=== PATIENT | male | born 1945 | race Caucasian/White ===

== ENCOUNTER → 2018-01-04 12:11 | Outpatient (CLI) | payer OTHER, SELFPAY ==
[2018-01-04 13:44] LABS: BUN Creatinine Ratio 19.2 (6-22); Calcium 9.2 mg/dL (8.4-10.2); Estimated Glomerular Filt Rate 59.5 mL/min (>60); Glucose 135 mg/dL (80-110); HEMOLYSIS < 15 (0-50); Phosphorous 3.6 mg/dL (2.3-3.7); Potassium 4.1 mmol/L (3.4-5.1); Sodium 142 mmol/L (137-145)
[2018-01-04 14:59] LABS: Creatinine Urine Random 234.8 mg/dL
[2018-01-04 15:56] LABS: Protein (Total) Urine Random 1331 mg/dL (0-12); Protein Creatinine Ratio Urine 5.66 GRAM/24H
[2018-01-08 13:30] LABS: Parathyroid Hormone Int 56 pg/mL (14-64)
== END ==
PROVIDERS: PCP Internal Medicine; Visit Provider Student in an Organized Health Care Education/Training Program
DX: N05.9 Unspecified nephritic syndrome with unspecified morphologic changes (principal); E83.30 Disorder of phosphorus metabolism, unspecified; N25.81 Secondary hyperparathyroidism of renal origin; R80.9 Proteinuria, unspecified
CPT/HCPCS: 36415; 80048; 82570; 83970; 84100; 84156

== ENCOUNTER → 2018-02-28 13:10 | Outpatient (CLI) | payer OTHER, SELFPAY ==
[2018-02-28 14:05] LABS: Hematocrit 34.3 % (41-53); Hemoglobin 11.9 g/dL (13.5-17.5); Mean Corpuscular HGB Conc 34.6 % (30-36); Mean Corpuscular Hemoglobin 32.2 PG (26-34); Mean Corpuscular Volume 93.2 fL (80-100); Platelet Count 504 X10^3/uL (150-400); Red Blood Cell Count 3.68 X10^6/uL (4.5-5.9); Red Cell Distribution Width 14.5 % (11.6-14.8); White Blood Cell Count 6.7 X10^3/uL (4.5-11.0)
[2018-02-28 14:49] LABS: BUN Creatinine Ratio 22.7 (6-22); Blood Urea Nitrogen 25 mg/dL (9-20); Calcium 8.8 mg/dL (8.4-10.2); Carbon Dioxide 33 mmol/L (22-32); Chloride 98 mmol/L (98-107); Estimated Glomerular Filt Rate > 60.0 mL/min (>60); Glucose 109 mg/dL (80-110); HEMOLYSIS < 15 (0-50); Potassium 3.7 mmol/L (3.4-5.1); Sodium 138 mmol/L (137-145)
[2018-02-28 16:11] LABS: Creatinine Urine Random 91.4 mg/dL
[2018-02-28 16:24] LABS: Protein (Total) Urine Random 415 mg/dL (0-12); Protein Creatinine Ratio Urine 4.54 GRAM/24H
== END ==
PROVIDERS: PCP Internal Medicine; Visit Provider Student in an Organized Health Care Education/Training Program
DX: R80.9 Proteinuria, unspecified (principal); D70.9 Neutropenia, unspecified; N05.9 Unspecified nephritic syndrome with unspecified morphologic changes
CPT/HCPCS: 36415; 80048; 82570; 84156; 85027

== ENCOUNTER → 2018-04-11 14:11 | Outpatient (CLI) | payer OTHER, SELFPAY ==
[2018-04-11 14:45] LABS: Hematocrit 42.3 % (41-53); Hemoglobin 14.8 g/dL (13.5-17.5); Mean Corpuscular HGB Conc 34.9 % (30-36); Mean Corpuscular Hemoglobin 32.6 PG (26-34); Mean Corpuscular Volume 93.6 fL (80-100); Platelet Count 294 X10^3/uL (150-400); Red Blood Cell Count 4.52 X10^6/uL (4.5-5.9); Red Cell Distribution Width 16.1 % (11.6-14.8); White Blood Cell Count 7.3 X10^3/uL (4.5-11.0)
[2018-04-11 15:00] LABS: BUN Creatinine Ratio 23.3 (6-22); Blood Urea Nitrogen 28 mg/dL (9-20); Calcium 9.6 mg/dL (8.4-10.2); Carbon Dioxide 27 mmol/L (22-32); Chloride 101 mmol/L (98-107); Estimated Glomerular Filt Rate 59.3 mL/min (>60); Glucose 81 mg/dL (80-110); HEMOLYSIS < 15 (0-50); Potassium 3.6 mmol/L (3.4-5.1); Sodium 140 mmol/L (137-145)
[2018-04-11 15:21] LABS: Creatinine Urine Random 44.6 mg/dL; Protein (Total) Urine Random 109 mg/dL (0-12); Protein Creatinine Ratio Urine 2.44 GRAM/24H
== END ==
PROVIDERS: Family Provider Internal Medicine; PCP Internal Medicine; Visit Provider Student in an Organized Health Care Education/Training Program
DX: N05.9 Unspecified nephritic syndrome with unspecified morphologic changes (principal); D70.9 Neutropenia, unspecified; D63.1 Anemia in chronic kidney disease; R80.9 Proteinuria, unspecified
CPT/HCPCS: 36415; 80048; 82570; 84156; 85027

== ENCOUNTER → 2018-04-30 12:14 | Outpatient (CLI) | payer OTHER, SELFPAY ==
[2018-04-30 12:44] LABS: Hematocrit 42.8 % (41-53); Hemoglobin 15.2 g/dL (13.5-17.5); Mean Corpuscular HGB Conc 35.5 % (30-36); Mean Corpuscular Hemoglobin 33.4 PG (26-34); Mean Corpuscular Volume 94.1 fL (80-100); Platelet Count 298 X10^3/uL (150-400); Red Blood Cell Count 4.55 X10^6/uL (4.5-5.9); Red Cell Distribution Width 15.9 % (11.6-14.8); White Blood Cell Count 9.4 X10^3/uL (4.5-11.0)
[2018-04-30 12:56] LABS: Blood Urea Nitrogen 23 mg/dL (9-20); Carbon Dioxide 28 mmol/L (22-32); Chloride 107 mmol/L (98-107); Estimated Glomerular Filt Rate > 60.0 mL/min (>60); Glucose 94 mg/dL (80-110); HEMOLYSIS < 15 (0-50); Potassium 3.9 mmol/L (3.4-5.1); Sodium 142 mmol/L (137-145)
[2018-04-30 17:23] LABS: Protein (Total) Urine Random 130 mg/dL (0-12); Protein Creatinine Ratio Urine 0.96 GRAM/24H
== END ==
PROVIDERS: PCP Internal Medicine; Visit Provider Student in an Organized Health Care Education/Training Program
DX: N05.9 Unspecified nephritic syndrome with unspecified morphologic changes (principal); D70.9 Neutropenia, unspecified; R80.9 Proteinuria, unspecified
CPT/HCPCS: 36415; 80048; 82570; 84156; 85027

== ENCOUNTER → 2018-05-08 15:09 | Outpatient (CLI) | payer OTHER, SELFPAY ==
[2018-05-11 09:16] LABS: Tacrolimus 14.9 mcg/L (5.0-20.0)
== END ==
PROVIDERS: PCP Internal Medicine; Visit Provider Student in an Organized Health Care Education/Training Program
DX: T86.10 Unspecified complication of kidney transplant (principal)
CPT/HCPCS: 36415; 80197

== ENCOUNTER → 2018-05-15 09:31 | Outpatient (CLI) | payer OTHER, SELFPAY ==
[2018-05-17 15:41] LABS: Tacrolimus 14.7 mcg/L (5.0-20.0)
== END ==
PROVIDERS: Family Provider Internal Medicine; PCP Internal Medicine; Visit Provider Student in an Organized Health Care Education/Training Program
DX: T86.10 Unspecified complication of kidney transplant (principal)
CPT/HCPCS: 36415; 80197

== ENCOUNTER → 2018-05-27 08:32 | Outpatient (CLI) | payer OTHER, SELFPAY ==
[2018-05-27 09:05] LABS: Hematocrit 42.9 % (41-53); Hemoglobin 15.3 g/dL (13.5-17.5); Mean Corpuscular HGB Conc 35.6 % (30-36); Mean Corpuscular Hemoglobin 33.4 PG (26-34); Mean Corpuscular Volume 93.9 fL (80-100); Platelet Count 245 X10^3/uL (150-400); Red Blood Cell Count 4.57 X10^6/uL (4.5-5.9); Red Cell Distribution Width 14.5 % (11.6-14.8); White Blood Cell Count 5.3 X10^3/uL (4.5-11.0)
[2018-05-27 09:31] LABS: Creatinine Urine Random 94.7 mg/dL; Protein (Total) Urine Random 190 mg/dL (0-12)
[2018-05-27 09:32] LABS: BUN Creatinine Ratio 22.7 (6-22); Blood Urea Nitrogen 25 mg/dL (9-20); Calcium 9.3 mg/dL (8.4-10.2); Carbon Dioxide 33 mmol/L (22-32); Chloride 102 mmol/L (98-107); Estimated Glomerular Filt Rate > 60.0 mL/min (>60); Glucose 108 mg/dL (80-110); HEMOLYSIS < 15 (0-50); Potassium 3.4 mmol/L (3.4-5.1); Sodium 142 mmol/L (137-145)
== END ==
PROVIDERS: Family Provider Internal Medicine; PCP Internal Medicine; Visit Provider Student in an Organized Health Care Education/Training Program
DX: N05.9 Unspecified nephritic syndrome with unspecified morphologic changes (principal); D63.1 Anemia in chronic kidney disease; T86.10 Unspecified complication of kidney transplant; R80.9 Proteinuria, unspecified; D70.9 Neutropenia, unspecified
CPT/HCPCS: 36415; 80048; 80197; 82570; 84156; 85027

== ENCOUNTER → 2018-05-31 07:18 | Outpatient (CLI) | payer OTHER, SELFPAY ==
--- NOTE | 2018-05-31 | DI.MRI.S_ITS ---
PROCEDURE: MR HEAD/BRAIN WO/W CON INDICATIONS: SECONDARY PARKINSONISM. ABNORMAL GAIT. BILATERAL HAND TREMORS TECHNIQUE: Noncontrast axial T1 spin echo, axial T2 fast spin echo, sagittal and axial FLAIR, coronal T2 fast spin echo, axial gradient echo, axial diffusion and ADC through the brain. After the administration of contrast, axial and coronal T1 spin echo with fat saturation through the brain. COMPARISON: None. FINDINGS: Image quality: Diagnostic, with note made of motion artifact. CSF spaces: Basal cisterns are patent. No extra-axial fluid collections. Ventricles are normal in size and shape. Brain: No midline shift. No intracranial bleeds or masses. No abnormal intracranial enhancement. There is cerebral volume loss for age. There is periventricular white matter chronic small vessel ischemic change. The brainstem appears normal. Diffusion-weighted images demonstrate no acute ischemic insults. No chronic ischemic insults. Normal intravascular flow voids are present. Skull and face: Calvarial marrow is normal in signal. Orbits appear normal. Sinuses: Sinuses and mastoids appear clear. IMPRESSION: Normal brain MRI for age. No masses or abnormal enhancement can be seen. Note is made of age-appropriate brain parenchymal volume loss and chronic small vessel ischemic changes. No findings of acute or subacute infarction can be seen. Dictated by: Ricki Chaudhari M.D. on 05/31/2018 at 8:22 Approved by: Ricki Chaudhari M.D. on 05/31/2018 at 8:23
== END ==
PROVIDERS: PCP Internal Medicine; Visit Provider Psychiatry & Neurology Neurology
DX: G21.9 Secondary parkinsonism, unspecified (principal); R26.9 Unspecified abnormalities of gait and mobility
CPT/HCPCS: 70553

== ENCOUNTER → 2018-07-22 08:36 | Outpatient (CLI) | payer OTHER, SELFPAY ==
[2018-07-22 09:11] LABS: Hematocrit 40.4 % (41-53); Hemoglobin 14.1 g/dL (13.5-17.5); Mean Corpuscular HGB Conc 35.1 % (30-36); Mean Corpuscular Hemoglobin 34.6 PG (26-34); Mean Corpuscular Volume 98.7 fL (80-100); Platelet Count 263 X10^3/uL (150-400); Red Blood Cell Count 4.09 X10^6/uL (4.5-5.9); Red Cell Distribution Width 14.4 % (11.6-14.8); White Blood Cell Count 4.2 X10^3/uL (4.5-11.0)
[2018-07-22 09:56] LABS: BUN Creatinine Ratio 21.8 (6-22); Blood Urea Nitrogen 24 mg/dL (9-20); Calcium 9.5 mg/dL (8.4-10.2); Carbon Dioxide 28 mmol/L (22-32); Chloride 104 mmol/L (98-107); Creatinine Urine Random 51.8 mg/dL; Estimated Glomerular Filt Rate > 60.0 mL/min (>60); Glucose 100 mg/dL (80-110); HEMOLYSIS < 15 (0-50); Potassium 4.1 mmol/L (3.4-5.1); Protein (Total) Urine Random 125 mg/dL (0-12); Protein Creatinine Ratio Urine 2.41 GRAM/24H; Sodium 143 mmol/L (137-145)
[2018-07-24 17:19] LABS: Tacrolimus 7.4 mcg/L (5.0-20.0)
[2018-07-25 13:51] LABS: Parathyroid Hormone Int 52 pg/mL (14-64)
== END ==
PROVIDERS: PCP Internal Medicine; Visit Provider Student in an Organized Health Care Education/Training Program
DX: N05.9 Unspecified nephritic syndrome with unspecified morphologic changes (principal); D70.9 Neutropenia, unspecified; D63.1 Anemia in chronic kidney disease; T86.10 Unspecified complication of kidney transplant; N25.81 Secondary hyperparathyroidism of renal origin; R80.9 Proteinuria, unspecified
CPT/HCPCS: 36415; 80048; 80197; 82570; 83970; 84156; 85027

== ENCOUNTER → 2018-08-15 15:59 | Outpatient (CLI) | payer OTHER, SELFPAY ==
--- NOTE | 2018-08-15 16:04 | DI.RAD.S_ITS ---
PROCEDURE: XR ANKLE LT MIN 3V INDICATIONS: Ankle pain TECHNIQUE: 3 views of the ankle were acquired. COMPARISON: None. FINDINGS: Bones: No fractures or dislocations. Ankle mortise is normally aligned. No suspicious bony lesions. Soft tissues: Small to moderate tibiotalar joint effusion is likely present. Achilles tendon appears normal. Soft tissue swelling over lateral malleolus is seen. IMPRESSION: Lateral ankle soft tissue swelling. Likely small to moderate tibiotalar joint effusion. No gross acute ankle fracture or dislocation. Dictated by: Levy Linares M.D. on 08/15/2018 at 16:38 Approved by: Levy Linares M.D. on 08/15/2018 at 16:39
== END ==
PROVIDERS: PCP Internal Medicine; Visit Provider Physician Assistant
DX: M25.579 Pain in unspecified ankle and joints of unspecified foot (principal)
CPT/HCPCS: 73610

== ENCOUNTER → 2018-10-10 09:44 | Outpatient (CLI) | payer OTHER, SELFPAY ==
[2018-10-10 10:39] LABS: Hematocrit 41.5 % (41-53); Hemoglobin 14.4 g/dL (13.5-17.5); Mean Corpuscular HGB Conc 34.7 % (30-36); Mean Corpuscular Hemoglobin 34.1 PG (26-34); Mean Corpuscular Volume 98.3 fL (80-100); Platelet Count 289 X10^3/uL (150-400); Red Blood Cell Count 4.22 X10^6/uL (4.5-5.9); Red Cell Distribution Width 12.2 % (11.6-14.8); White Blood Cell Count 7.3 X10^3/uL (4.5-11.0)
[2018-10-10 11:14] LABS: Creatinine Urine Random 123.1 mg/dL
[2018-10-10 11:15] LABS: BUN Creatinine Ratio 22.3 (6-22); Blood Urea Nitrogen 29 mg/dL (9-20); Carbon Dioxide 30 mmol/L (22-32); Chloride 99 mmol/L (98-107); Estimated Glomerular Filt Rate 54.1 mL/min (>60); Glucose 104 mg/dL (80-110); HEMOLYSIS < 15 (0-50); Potassium 4.1 mmol/L (3.4-5.1); Sodium 140 mmol/L (137-145)
[2018-10-10 11:24] LABS: Protein (Total) Urine Random 324 mg/dL (0-12); Protein Creatinine Ratio Urine 2.63 GRAM/24H
[2018-10-11 14:08] LABS: Parathyroid Hormone Int 67 pg/mL (14-64)
[2018-10-13 09:37] LABS: Tacrolimus 7.1 mcg/L (5.0-20.0)
== END ==
PROVIDERS: Family Provider Internal Medicine; PCP Internal Medicine; Visit Provider Student in an Organized Health Care Education/Training Program
DX: N05.9 Unspecified nephritic syndrome with unspecified morphologic changes (principal); D70.9 Neutropenia, unspecified; D63.1 Anemia in chronic kidney disease; T86.10 Unspecified complication of kidney transplant; N25.81 Secondary hyperparathyroidism of renal origin; R80.9 Proteinuria, unspecified
CPT/HCPCS: 36415; 80048; 80197; 82570; 83970; 84156; 85027

== ENCOUNTER → 2018-11-15 09:14 | Outpatient (CLI) | payer OTHER, SELFPAY ==
[2018-11-15 10:59] LABS: Hemoglobin 12.4 g/dL (13.5-17.5); Mean Corpuscular HGB Conc 35.4 % (30-36); Mean Corpuscular Hemoglobin 35.2 PG (26-34); Mean Corpuscular Volume 99.6 fL (80-100); Platelet Count 217 X10^3/uL (150-400); Red Blood Cell Count 3.52 X10^6/uL (4.5-5.9); Red Cell Distribution Width 13.5 % (11.6-14.8); White Blood Cell Count 8.2 X10^3/uL (4.5-11.0)
[2018-11-15 11:03] LABS: Creatinine Urine Random 48.6 mg/dL; Protein (Total) Urine Random 137 mg/dL (0-12); Protein Creatinine Ratio Urine 2.81 GRAM/24H
[2018-11-15 11:17] LABS: BUN Creatinine Ratio 41.7 (6-22); Blood Urea Nitrogen 50 mg/dL (9-20); Calcium 8.7 mg/dL (8.4-10.2); Carbon Dioxide 30 mmol/L (22-32); Chloride 98 mmol/L (98-107); Estimated Glomerular Filt Rate 59.3 mL/min (>60); Glucose 117 mg/dL (80-110); HEMOLYSIS < 15 (0-50); Potassium 4.1 mmol/L (3.4-5.1); Sodium 136 mmol/L (137-145)
== END ==
PROVIDERS: Family Provider Internal Medicine; PCP Internal Medicine; Visit Provider Student in an Organized Health Care Education/Training Program
DX: D70.9 Neutropenia, unspecified (principal); N05.9 Unspecified nephritic syndrome with unspecified morphologic changes; R80.9 Proteinuria, unspecified; D63.1 Anemia in chronic kidney disease
CPT/HCPCS: 36415; 80048; 82570; 84156; 85027